=== PATIENT | male | born 2000 | race African-American/Black ===

== ENCOUNTER 2023-06-12 02:23 | Inpatient (IN) | payer SELFPAY ==
[~2023-06-12] VITALS: Ht 175.3 cm; Wt 86.2 kg
[2023-06-12 03:06] VITALS: O2SAT 98
[2023-06-12 09:14] LABS: DIFFERENTIAL COMMENT 1; HEMATOCRIT. 33.7 % (42.0-52.0); HEMOGLOBIN. 11.2 g/dL (14.0-18.0); MEAN CORPUSCULAR HEMOGLOBIN 25.5 pg (28.0-32.0); MEAN CORPUSCULAR HGB CONC 33.1 g/dL (31.0-37.0); MEAN CORPUSCULAR VOLUME 77.1 fL (80.0-94.0); MEAN PLATELET VOLUME 7.8 fl (7.4-10.4); PLATELET 377 x1000/uL (130-400); RED BLOOD CELL COUNT 4.38 mill/uL (4.7-6.1); RED CELL DISTRIBUTION WIDTH 21.2 % (11.6-14.6); WHITE BLOOD COUNT 10.7 x1000/uL (4.5-11.0)
[2023-06-12 09:27] LABS: ALANINE AMINOTRANSFERASE 23 IU/L (10-49); ALBUMIN 4.9 g/dL (3.2-4.8); ASPARTATE AMINOTRANSFERASE 49 IU/L (<34); CALCIUM 9.8 mg/dL (8.7-10.4); CARBON DIOXIDE 25 mEq/L (21-32); CHLORIDE 103 mEq/L (98-107); CREATININE 0.9 mg/dL (0.6-1.3); GLUCOSE 95 mg/dL (70-105); POTASSIUM 4.4 mEq/L (3.5-5.1); PROTEIN TOTAL 9.1 g/dL (6.0-8.3); SODIUM 136 mEq/L (136-145); UREA NITROGEN BLOOD 13 mg/dL (9-23)
[2023-06-12] MEDS ORDERED: HYDROCODONE/ACETAMINOPHEN 5/325MG TABLET PO NR (09:29)
[2023-06-12] MEDS ORDERED: SODIUM CHLORIDE 0.9% 1,000 ML IV ONE (09:30)
[2023-06-12 10:43] LABS: PROTHROMBIN TIME 10.8 sec (9.6-11.0)
[2023-06-12 10:52] LABS: LACTATE DEHYDROGENASE 378 IU/L (120-246)
[2023-06-12 11:14] LABS: TROPONIN I HIGH SENSITIVITY < 4 ng/L (3.0-53)
[2023-06-12 11:29] LABS: PLATELET ESTIMATE NORMAL; TARGET CELLS 2+
[2023-06-12 11:29] LABS: CLARITY URINE CLEAR (CLEAR); COLOR URINE YELLOW (YELLOW); GLUCOSE URINE NEGATIVE (NEGATIVE); KETONES URINE TRACE (NEGATIVE); LEUKOCYTE ESTERASE URINE NEGATIVE (NEGATIVE); NITRITE URINE NEGATIVE (NEGATIVE); OCCULT BLOOD URINE NEGATIVE (NEGATIVE); PH URINE 7.5 (4.5-8.0); PROTEIN URINE NEGATIVE (NEGATIVE); SPECIFIC GRAVITY URINE 1.013 (1.005-1.030); UROBILINOGEN URINE 0.2 E.U./dL (0.2-1.0)
[2023-06-12 11:30] LABS: ANISOCYTOSIS 3+; MICROCYTOSIS 1+
[2023-06-12] MEDS ORDERED: MORPHINE SULFATE 4 MG/ML CPJ (NOT FOR IM USE) IV ONE (11:45)
[2023-06-12] MEDS ORDERED: MORPHINE SULFATE 2 MG/ML CPJ (NOT FOR IM USE) IV ONE (13:15)
[2023-06-12] MEDS: MORPHINE SULFATE 2 MG/ML CPJ (NOT FOR IM USE) IV NR ×2 (16:18→20:23)
[2023-06-12] MEDS ORDERED: MORPHINE SULFATE 2 MG/ML CPJ (NOT FOR IM USE) IV PRN (18:00)
[2023-06-12] MEDS ORDERED: ONDANSETRON HCL 4MG/2ML INJ IV PRN (18:00)
[2023-06-12] MEDS ORDERED: HYDROCODONE/ACETAMINOPHEN 7.5/325MG TABLET PO PRN (18:00)
[2023-06-12] MEDS ORDERED: DOCUSATE SODIUM 100MG CAPSULE PO PRN (18:00)
[2023-06-12] MEDS ORDERED: ACETAMINOPHEN 325MG TABLET PO PRN (18:00)
[2023-06-12] MEDS ORDERED: GUAIFENESIN 200MG/10ML SUGAR FREE UDC PO PRN (18:00)
[2023-06-12] MEDS ORDERED: SODIUM CHLORIDE 0.45% 1,000 ML IV SCH (18:00)
[2023-06-12] MEDS ORDERED: FOLI-43 PO (18:10)
[2023-06-12] MEDS ORDERED: HYDR500C18 MT (18:11)
[2023-06-12 18:19] VITALS: BP 127/75; PULSE 117; RESP 14; TEMP 98
[2023-06-12] MEDS ORDERED: NALOXONE HCL 0.4MG/ML VIAL IV PRN (18:30)
[2023-06-12 20:00] VITALS: BP 141/87; PULSE 89; RESP 16; TEMP 98.2
[2023-06-12] MEDS ORDERED: LORAZEPAM 1MG TABLET PO PRN (20:00)
[2023-06-13] VITALS: BP 117/61; PULSE 72; RESP 18; TEMP 98.1
== END 2023-06-13 01:15 | disposition left against medical advice (07) | DRG 662 ==
LOC: ER 02:23 → 6EST 15:01 → EDBEDREQ 15:07
PROVIDERS: ADMIT Hospitalist; ATTEND Hospitalist
DX: D57.00 Hb-SS disease with crisis, unspecified (principal); Z53.29 Procedure and treatment not carried out because of patient's decision for other reasons; Z79.899 Other long term (current) drug therapy; Z88.8 Allergy status to other drugs, medicaments and biological substances
CPT/HCPCS: 36415; 71045; 80053; 81003; 83615; 84484; 85025; 85044; 86850; 86900; 93005; 99285; J2270